=== PATIENT | female | born 1940 | race Caucasian/White ===

== ENCOUNTER 2024-12-26 07:40 | Outpatient (CLI) | payer MEDICARE, SELFPAY ==
--- NOTE | ~2024-12-26 | US_ITS ---
US right upper quadrant INDICATION: Abnormal liver function tests. PROCEDURE: Realtime right upper abdominal ultrasound. COMPARISON: No prior studies for comparison. FINDINGS: The pancreas is normal without focal mass or pancreatic ductal dilation. Liver echotexture is normal without focal mass or intrahepatic biliary dilatation. There is normal directional flow i n the portal vein. There are gallbladder polyps measuring up to 6 mm. No definite gallstones, gallbladder wall thickenin g or pericholecystic fluid.. Common bile duct measures 3 mm. No sonographic Harris's sign. IMPRESSION: 1: Gallbladder polyps. Reviewed, dictated and finalized at location B. ER IMPRESSION: 1: Gallbladder polyps.
== END 2024-12-26 07:41 | disposition home or self-care (01) ==
PROVIDERS: PCP Internal Medicine; Visit Provider Internal Medicine
DX: R94.5 Abnormal results of liver function studies (principal); K82.4 Cholesterolosis of gallbladder
CPT/HCPCS: 76705

== ENCOUNTER 2025-04-14 12:33 | Outpatient (CLI) | payer MEDICARE, SELFPAY ==
--- NOTE | ~2025-04-14 | MR_ITS ---
MRI of the brain Clinical History: Dizziness and giddiness Technique: Axial and sagittal T1-weighted images were acquired. These were followed by axial T2-weigh malena, diffusion weighted, gradient, and FLAIR images. Thin cut axial and coronal T1-weighted and T2-we ighted images were performed through the internal auditory canals. Following intravenous administrati on of 10 cc MultiHance gadolinium, T1-weighted fat-sat imaging was performed through the brain in the axial and coronal planes. Thin cut T1-weighted postcontrast imaging was performed through the international sales manager al auditory canals and the axial and coronal planes. Findings: No acute infarct, intracranial hemorrhage, or mass lesion identified. There are moderate ch ronic white matter ischemic changes throughout the periventricular white matter bilaterally. Ventricles and subarachnoid spaces are minimally dilated. Orbits are unremarkable. Paranasal sinuses and mastoid air cells are clear aside from minimal right ethmoid sinus disease. Major intracranial fl ow voids are intact. Sagittal midline structures are intact. No abnormal mass lesion seen at the internal auditory canals or CP angle regions. No abnormal postcontrast enhancement identified. IMPRESSION: Moderate chronic microvascular ischemic change, otherwise unremarkable exam. Reviewed, dictated and finalized at [facility].
== END 2025-04-14 12:34 | disposition home or self-care (01) ==
PROVIDERS: PCP Internal Medicine; Visit Provider Internal Medicine
DX: R42 Dizziness and giddiness (principal)
CPT/HCPCS: 70553; A9577

== ENCOUNTER 2025-10-09 12:32 | Outpatient (CLI) | payer MEDICARE, SELFPAY ==
--- NOTE | ~2025-10-09 | XR_ITS ---
XR hip RT min 2V 10/09/2025 13:06 Indication: 2 views right hip Procedure: 2 views right hip Comparison: 06/30/2025 Findings: Severe osteoarthritis of the right hip. No fracture, subluxation or dislocation. Mild acetabula protrusio. No free acute fracture. 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 Reviewed, dictated and finalized at location I. 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
== END 2025-10-09 12:33 | disposition home or self-care (01) ==
PROVIDERS: PCP Internal Medicine; Visit Provider Internal Medicine
DX: M16.11 Unilateral primary osteoarthritis, right hip (principal)
CPT/HCPCS: 73502